=== PATIENT | male | born 1980 | race Two or more races ===

== ENCOUNTER → 2018-08-13 | Outpatient (CLI) | payer OTHER | END | disposition home or self-care (01) | LOC: RAD 14:29 | PROVIDERS: ATTEND Internal Medicine Endocrinology, Diabetes & Metabolism | DX: S09.90XA Unspecified injury of head, initial encounter (principal); H53.149 Visual discomfort, unspecified; Z88.5 Allergy status to narcotic agent; Z79.899 Other long term (current) drug therapy; Y35.813A Legal intervention involving manhandling, suspect injured, initial encounter | CPT/HCPCS: 70450 ==